=== PATIENT | male | born 1970 | race Caucasian/White ===

== ENCOUNTER 2021-05-14 00:12 | Inpatient (IN) | payer OTHER ==
[~2021-05-14] VITALS: Ht 170.2 cm; Wt 71.4 kg
[~2021-05-14 00:12] MED LIST: ACET-2247 PO; GABA-1181 PO; LACO100 PO; LACT30L PO; LEVAHFA IH; LEVE500T53 PO; MIRT30 PO; NEOM1OIN8 TP; PARO-38 PO; TOPI100T37 PO
[2021-05-14] MEDS ORDERED: MIRTAZAPINE 30 MG TABLET PO ONE (01:00)
[2021-05-14] MEDS ORDERED: GABAPENTIN 300 MG CAPSULE PO ONE (01:00)
[2021-05-14] MEDS ORDERED: LevETIRAcetam 500 MG TABLET PO ONE (01:00)
[2021-05-14] MEDS ORDERED: LACOSAMIDE 100 MG TABLET PO ONE (01:00)
[2021-05-14] MEDS ORDERED: TOPIRAMATE 100 MG TABLET PO ONE (01:00)
[2021-05-14] MEDS ORDERED: ACETAMINOPHEN 325 MG TABLET PO PRN ×2 (02:00)
[2021-05-14] MEDS ORDERED: LEVALBUTEROL TARTRATE HFA 45 MCG/PUFF 15 GM INHALER IH PRN (02:00)
[2021-05-14] MEDS ORDERED: NEOMYCIN/BACITRACIN/POLYMYXIN B OINTMENT PACKET TP SCH (02:00)
[2021-05-14] MEDS ORDERED: LACTULOSE 20 GM/30 ML SOLUTION UDCUP PO PRN (02:00)
[2021-05-14] MEDS ORDERED: ONDANSETRON HCL 4 MG/2 ML VIAL IVP PRN (02:00)
[2021-05-14] MEDS: HEPARIN SODIUM,PORCINE 5,000 UNITS/ML VIAL SQ SCH ×3 (08:00→23:06)
[2021-05-14] MEDS: PARoxetine HCL 20 MG TABLET PO SCH (10:45)
[2021-05-14] MEDS: LACOSAMIDE 100 MG TABLET PO SCH ×2 (10:45→20:44)
[2021-05-14] MEDS: TOPIRAMATE 100 MG TABLET PO SCH ×2 (10:45→20:44)
[2021-05-14] MEDS: GABAPENTIN 300 MG CAPSULE PO SCH ×2 (10:45→20:44)
[2021-05-14] MEDS: LevETIRAcetam 500 MG TABLET PO SCH ×2 (10:48→20:43)
[2021-05-14 16:24] VITALS: BP 89/60
[2021-05-14] MEDS ORDERED: LORazepam 2 MG/ML VIAL IVP PRN (19:30)
[2021-05-14 19:53] VITALS: BP 100/67
[2021-05-14] MEDS: MIRTAZAPINE 30 MG TABLET PO SCH (23:01)
[2021-05-15 04:35] VITALS: BP 114/72
[2021-05-15 07:55] VITALS: BP 94/59
[2021-05-15] MEDS: HEPARIN SODIUM,PORCINE 5,000 UNITS/ML VIAL SQ SCH ×2 (08:00→16:00)
[2021-05-15] MEDS: GABAPENTIN 300 MG CAPSULE PO SCH ×2 (09:02→20:11)
[2021-05-15] MEDS: LevETIRAcetam 500 MG TABLET PO SCH ×2 (09:02→20:10)
[2021-05-15] MEDS: TOPIRAMATE 100 MG TABLET PO SCH ×2 (09:02→20:10)
[2021-05-15] MEDS: LACOSAMIDE 100 MG TABLET PO SCH ×2 (09:02→20:10)
[2021-05-15] MEDS: PARoxetine HCL 20 MG TABLET PO SCH (09:04)
[2021-05-15 20:00] VITALS: BP 105/63
[2021-05-15] MEDS: MIRTAZAPINE 30 MG TABLET PO SCH (20:10)
[2021-05-16 06:01] VITALS: BP 100/57
[2021-05-16 07:45] VITALS: BP 105/65
[2021-05-16] MEDS: HEPARIN SODIUM,PORCINE 5,000 UNITS/ML VIAL SQ SCH ×4 (08:00→23:36)
[2021-05-16] MEDS: LevETIRAcetam 500 MG TABLET PO SCH ×2 (08:29→20:25)
[2021-05-16] MEDS: GABAPENTIN 300 MG CAPSULE PO SCH ×2 (08:29→20:24)
[2021-05-16] MEDS: LACOSAMIDE 100 MG TABLET PO SCH ×2 (08:29→20:25)
[2021-05-16] MEDS: TOPIRAMATE 100 MG TABLET PO SCH ×2 (08:29→20:24)
[2021-05-16] MEDS: PARoxetine HCL 20 MG TABLET PO SCH (08:30)
[2021-05-16] MEDS: MIRTAZAPINE 30 MG TABLET PO SCH (20:24)
[2021-05-16 20:28] VITALS: BP 111/63
[2021-05-16 23:52] VITALS: BP 109/70
[2021-05-17 04:00] VITALS: BP 115/69
[2021-05-17 07:45] VITALS: BP 100/64
[2021-05-17] MEDS: HEPARIN SODIUM,PORCINE 5,000 UNITS/ML VIAL SQ SCH ×3 (08:00→15:43)
[2021-05-17] MEDS: PARoxetine HCL 20 MG TABLET PO SCH (09:37)
[2021-05-17] MEDS: LevETIRAcetam 500 MG TABLET PO SCH ×2 (09:38→20:54)
[2021-05-17] MEDS: GABAPENTIN 300 MG CAPSULE PO SCH ×2 (09:38→20:59)
[2021-05-17] MEDS: TOPIRAMATE 100 MG TABLET PO SCH ×2 (09:38→20:54)
[2021-05-17] MEDS: LACOSAMIDE 100 MG TABLET PO SCH ×2 (09:39→20:54)
[2021-05-17 15:15] VITALS: BP 112/66
[2021-05-17 20:11] VITALS: BP 99/61
[2021-05-17 23:30] VITALS: BP 123/69
[2021-05-18] MEDS: MIRTAZAPINE 30 MG TABLET PO SCH ×2 (00:01→21:00)
[2021-05-18 05:36] VITALS: BP 99/56
[2021-05-18] MEDS: HEPARIN SODIUM,PORCINE 5,000 UNITS/ML VIAL SQ SCH ×4 (08:00→23:46)
[2021-05-18 08:08] VITALS: BP 104/60
[2021-05-18] MEDS: LACOSAMIDE 100 MG TABLET PO SCH ×2 (09:33→20:24)
[2021-05-18] MEDS: TOPIRAMATE 100 MG TABLET PO SCH ×2 (09:34→20:24)
[2021-05-18] MEDS: PARoxetine HCL 20 MG TABLET PO SCH (09:34)
[2021-05-18] MEDS: GABAPENTIN 300 MG CAPSULE PO SCH ×2 (09:34→20:23)
[2021-05-18] MEDS: LevETIRAcetam 500 MG TABLET PO SCH ×2 (09:34→20:23)
[2021-05-18 20:00] VITALS: BP 99/60
[2021-05-18 23:40] VITALS: BP 96/52
[2021-05-19 04:30] VITALS: BP 98/58
[2021-05-19 08:14] VITALS: BP 96/63
[2021-05-19 08:18] LABS: BASOPHILS % (AUTO) 0.7 % (0.0-2.0); EOSINOPHILS % (AUTO) 3.6 % (1.0-6.0); HEMATOCRIT 41.1 % (41-53); HEMOGLOBIN 13.4 g/dL (13.5-17.5); LYMPHOCYTES # (AUTO) 2.3 K/uL (1.0-4.8); LYMPHOCYTES % (AUTO) 38.9 % (22.0-44.0); MEAN CORPUSCULAR HEMOGLOBIN 29.5 pg (26.0-34.0); MEAN CORPUSCULAR HGB CONC 32.7 G/dL (31.0-37.0); MEAN CORPUSCULAR VOLUME 90 fL (80-100); MONOCYTES # (AUTO) 0.5 K/uL (0.1-1.0); MONOCYTES % (AUTO) 7.5 % (2.0-9.0); NEUTROPHILS # (AUTO) 2.9 K/uL (1.8-7.7); NEUTROPHILS % (AUTO) 49.3 % (40.0-70.0); PLATELET COUNT (AUTO) 223 K/uL (150-450); RED BLOOD CELL COUNT(AUTO) 4.56 MIL/uL (4.50-5.90)
[2021-05-19 08:36] LABS: ALANINE AMINOTRANSFERASE 42 U/L (12-78); ALBUMIN 3.6 g/dL (3.4-5.0); ALKALINE PHOSPHATASE 66 U/L (46-116); ANION GAP 14 mmol/L (8-16); ASPARTATE AMINOTRANSFERASE 32 U/L (15-37); BILIRUBIN,TOTAL 0.2 mg/dL (0.1-1.0); CALCIUM, TOTAL 8.8 mg/dL (8.8-10.5); CARBON DIOXIDE 20 mmol/L (22-29); CHLORIDE 106 mmol/L (98-107); CREATININE 0.55 mg/dL (0.60-1.30); GLOMERULAR FILTR. RATE CALC > 60 mL/min (>60); GLUCOSE,RANDOM 96 mg/dL (70-110); POTASSIUM 3.7 mmol/L (3.5-5.1); SODIUM SERUM 140 mmol/L (136-145); TOTAL PROTEIN, SERUM 7.6 g/dL (6.4-8.2); UREA NITROGEN, BLOOD 14 mg/dL (7-18)
[2021-05-19] MEDS: LACOSAMIDE 100 MG TABLET PO SCH (08:45)
[2021-05-19] MEDS: PARoxetine HCL 20 MG TABLET PO SCH (08:46)
[2021-05-19] MEDS: GABAPENTIN 300 MG CAPSULE PO SCH (08:46)
[2021-05-19] MEDS: LevETIRAcetam 500 MG TABLET PO SCH (08:46)
[2021-05-19] MEDS: HEPARIN SODIUM,PORCINE 5,000 UNITS/ML VIAL SQ SCH ×2 (08:47→16:00)
[2021-05-19] MEDS: TOPIRAMATE 100 MG TABLET PO SCH (08:47)
[2021-05-19 12:52] VITALS: BP 99/65
[2021-05-19 15:53] VITALS: BP 96/60
== END 2021-05-19 20:02 | DRG 101 ==
LOC: EMS 00:14 → 6S 06:09
PROVIDERS: ADMIT Internal Medicine; ATTEND Internal Medicine
DX: G40.909 Epilepsy, unspecified, not intractable, without status epilepticus (principal); L03.116 Cellulitis of left lower limb; F60.3 Borderline personality disorder; F31.9 Bipolar disorder, unspecified; F41.9 Anxiety disorder, unspecified; Z87.820 Personal history of traumatic brain injury; Z88.8 Allergy status to other drugs, medicaments and biological substances; Z91.041 Radiographic dye allergy status; Z88.0 Allergy status to penicillin; Z91.013 Allergy to seafood; Z79.899 Other long term (current) drug therapy
CPT/HCPCS: 80053; 85025; 99285; J1644; J2060